=== PATIENT | female | born 1990 | race African-American/Black ===

== ENCOUNTER 2018-01-26 21:33 | Emergency (ER) | payer MEDICAID ==
[~2018-01-26] VITALS: Ht 170.2 cm; Wt 71.0 kg
[2018-01-27 06:50] LABS: CLARITY URINE CLEAR (CLEAR); COLOR URINE YELLOW (YELLOW); KETONES URINE NEGATIVE (NEGATIVE); LEUKOCYTE ESTERASE URINE NEGATIVE (NEGATIVE); NITRITE URINE NEGATIVE (NEGATIVE); OCCULT BLOOD URINE 2+ (NEGATIVE); PH URINE 5.5 (4.5-8.0); PROTEIN URINE NEGATIVE (NEGATIVE); SPECIFIC GRAVITY URINE 1.029 (1.005-1.030); UROBILINOGEN URINE 0.2 E.U./dL (0.2-1.0)
[2018-01-27 08:02] VITALS: BP 112/71
== END 2018-01-27 08:03 | disposition home or self-care (01) ==
LOC: ER 21:33
DX: N93.8 Other specified abnormal uterine and vaginal bleeding (principal); Z87.891 Personal history of nicotine dependence
CPT/HCPCS: 76856; 81003; 81025; 99285

== ENCOUNTER 2019-10-29 17:51 | Emergency (ER) | payer MEDICAID ==
[~2019-10-29] VITALS: Ht 170.2 cm; Wt 79.0 kg
[2019-10-29] MEDS ORDERED: IBUPROFEN 600MG TABLET PO ONE (18:45)
[2019-10-29 20:07] VITALS: BP 124/72
== END 2019-10-29 20:19 | disposition home or self-care (01) ==
LOC: ER 17:51
DX: S52.691A Other fracture of lower end of right ulna, initial encounter for closed fracture (principal); W51.XXXA Accidental striking against or bumped into by another person, initial encounter; Y93.89 Activity, other specified; Y92.9 Unspecified place or not applicable
CPT/HCPCS: 29125; 73090; 99283

== ENCOUNTER 2020-05-31 10:55 | Emergency (ER) | payer MEDICAID ==
[~2020-05-31] VITALS: Ht 170.2 cm; Wt 84.0 kg
[2020-05-31] MEDS ORDERED: KETOROLAC 60MG/2ML VIAL IM STA (11:26)
[2020-05-31 11:52] LABS: BASOPHILS % 0.7 % (0.0-2.0); EOSINOPHILS % 0.3 % (0.0-5.0); HEMATOCRIT. 39.4 % (36.0-48.0); HEMOGLOBIN. 12.9 g/dL (12.0-16.0); LYMPHOCYTES % 28.7 % (20.0-50.0); MEAN CORPUSCULAR HEMOGLOBIN 30.1 pg (28.0-32.0); MEAN CORPUSCULAR VOLUME 91.7 fL (81.0-99.0); MEAN PLATELET VOLUME 7.3 fl (7.4-10.4); MONOCYTES % 6.4 % (2.0-8.0); NEUTROPHILS % 63.9 % (40.0-76.0); PLATELET 217 x1000/uL (130-400); RED CELL DISTRIBUTION WIDTH 13.1 % (11.6-14.6)
[2020-05-31 12:00] LABS: CHLORIDE 106 mEq/L (98-107)
[2020-05-31 12:16] LABS: HCG SCREEN NEGATIVE
[2020-05-31 12:17] VITALS: BP 112/69
[2020-05-31] MEDS ORDERED: HYDROCODONE/ACETAMINOPHEN 5/325MG TABLET PO SCH (13:45)
[2020-05-31 14:30] LABS: CLARITY URINE TURBID (CLEAR); COLOR URINE YELLOW (YELLOW); KETONES URINE NEGATIVE (NEGATIVE); LEUKOCYTE ESTERASE URINE 3+ (NEGATIVE); NITRITE URINE NEGATIVE (NEGATIVE); OCCULT BLOOD URINE NEGATIVE (NEGATIVE); PH URINE 5.5 (4.5-8.0); PROTEIN URINE TRACE (NEGATIVE); SPECIFIC GRAVITY URINE 1.023 (1.005-1.030); UROBILINOGEN URINE 0.2 E.U./dL (0.2-1.0)
== END 2020-05-31 15:23 | disposition home or self-care (01) ==
LOC: ER 10:55
DX: K43.9 Ventral hernia without obstruction or gangrene (principal); N30.00 Acute cystitis without hematuria; Z87.891 Personal history of nicotine dependence
CPT/HCPCS: 36415; 74177; 80053; 81003; 81025; 83690; 84703; 85025; 96372; 99285; J1885; Z7610